=== PATIENT | female | born 1980 | race Caucasian/White ===

== ENCOUNTER 2019-10-26 15:30 | Outpatient (RCR) | payer SELFPAY | END 2019-10-26 23:59 | disposition home or self-care (01) | LOC: NS 15:30 | PROVIDERS: Visit Provider Specialist | DX: Z71.3 Dietary counseling and surveillance (principal); E66.8 Other obesity; Z68.43 Body mass index [BMI] 50.0-59.9, adult | CPT/HCPCS: 97803; 99201; G0463 ==

== ENCOUNTER 2022-03-26 09:08 | Emergency (ER) | payer BC, SELFPAY ==
[2022-03-26 09:08] VITALS: BP 120/76; PULSE 101; RESP 34; TEMP 35.6; O2SAT 99; BMI 57.8
--- NOTE | 2022-03-26 09:12 | NURSING ---
NO OLD EKGS
--- NOTE | 2022-03-26 09:14 | RAD_ITS ---
STUDY: X-RAY CHEST REASON FOR EXAM: Female, 41 years old. Sudden onset of chest pain with shortness of breath. TECHNIQUE: Single AP portable view of the chest. COMPARISON: None. FINDINGS: EKG electrodes are seen. Elevation of the right hemidiaphragm. The lungs are clear. There is no demonstrated pleural abnormality. Normal size heart. Normal mediastinum and ilene. Normal visualized pulmonary arteries. Normal visualized aortic arch and descending thoracic aorta. Normal visualized thoracic spine. Normal visualized ribs, clavicles, and shoulders. There is no demonstrated abnormality of the visualized soft tissue structures of the upper abdomen. RAD/Chest 1 View (Portable) IMPRESSION: No acute abnormality is seen. Electronically Signed: Dimitris Fleming MD at 10:14 EDT ,
--- NOTE | 2022-03-26 09:14 | EKG12_ITS ---
Test Reason : CP Blood Pressure : / mmHG Vent. Rate : 093 BPM Atrial Rate : 093 BPM P-R Int : 132 ms QRS Dur : 090 ms QT Int : 364 ms P-R-T Axes : 031 036 013 degrees QTc Int : 452 ms Normal sinus rhythm Low voltage QRS Borderline ECG Confirmed by JESSIE FRAIRE, ANASTACIA ([id number]), business editor JOCELINE HURT ([id number]) on 03/29/2022 7:56:39 AM Referred By: Alfonso Confirmed By:ANASTACIA ROMAN MD
--- NOTE | 2022-03-26 09:15 | ED.VIS.CHEST ---
HPI History of Present Illness Chief Complaint: Chest Pain Detail of Chief Complaint: Difficulty breathing and shortness of breath Informant: patient Onset/Context/Timing Onset: Hours (0400) Activity at onset: sleep Timing: Continuous Location: - (Patient denies chest discomfort. She states difficulty breathing and back pain) Current Severity: Mild Maximum Severity: Moderate Worsened By: Nothing Relieved By: Nothing Associated Symptoms: Positive for Dyspnea and - (There is no history of hiatal hernia or peptic ulcer disease); Negative for Nausea, Vomiting, Diaphoresis, Cough, Fever, Lightheadedness, Acid Reflux or Palpitations Narrative Narrative: Patient is a 41-year-old woman with history of hypertension, hypercholesterolemia, obstructive sleep apnea who is compliant with her BiPAP machine and prediabetes. She states she was awakened from sleep at 0400 with shortness of breath. She denies diaphoresis. She denies chest discomfort. She states she had upper back pain. She denies jaw pain, neck pain or upper extremity pain. She denied nausea, vomiting. She denies prior symptoms. Patient denies history of hiatal hernia, reflux or peptic ulcer disease. Patient denies black or maroon-colored stool. Patient still is experiencing the shortness of breath. She denies history of VTE and has no risk factors. Prior Similar Symptoms: No CVD Risk Factors: Positive for Hypertension, Hypercholesterolemia and - (Father had heart disease but does not know age); Negative for Smoking PE Risk Factors: Negative for Recent Travel/Surgery, Recent Immobilization, Prior DVT or PE, Cancer or OCP + Smoking + >/=35 TAD Risk Factors: Positive for Hypertension; Negative for Marfan's Syndrome or Family History PFSH PFSH Medical History no medical history Allergy/AdvReac Type Severity Reaction Status Date / Time watermelon Allergy Swelling Verified 03/26/22 09:11 Family History no significant family his Surgical History no surgical history Social History (Updated 03/26/22 @ 09:[address] Curry Hamilton MD) household members: spouse Smoking Status: Never smoker substance use type: does not use ROS ROS ED Constitutional Constitutional ED: Denies chills, fever(s), subjective, sweats or weight loss Eyes Eyes: Reports none ENT ENT ED: Denies ear pain, rhinorrhea or sore throat Cardiovascular Cardiovascular: Reports as per HPI; Denies orthopnea or paroxysmal nocturnal dyspnea Respiratory/Chest Respiratory/Chest: Reports dyspnea; Denies cough, dyspnea on exertion, orthopnea or paroxysmal nocturnal dyspnea Gastrointestinal Gastrointestinal: Denies abdominal pain, diarrhea, melena, nausea or vomiting Genitourinary Genitourinary ED: Denies dysuria or hematuria Musculoskeletal Musculoskeletal: Reports back pain; Denies arthralgias, myalgias or neck pain Neurologic Neurologic: Denies headache(s), paresthesias or weakness Psychiatric Psychiatric: Denies anxiety or depression Endocrine Endocrinology: Denies cold intolerance or heat intolerance Hematologic/Lymphatic Hematologic/Lymphatic: Denies easy bruising EXAM Physical Exam Const Vital Signs: 03/26/22 09:08 03/26/22 09:14 03/26/22 11:06 Temperature 96.1 F L Temperature Source Temporal Pulse Rate 101 H 96 Respiratory Rate 34 H 20 H Blood Pressure 120/76 120/83 H Blood Pressure Mean 90 95 Pulse Ox 99 96 Oxygen Delivery Method Room Air Room Air Room Air 03/26/22 12:16 Temperature Temperature Source Pulse Rate 90 Respiratory Rate 26 H Blood Pressure 131/89 H Blood Pressure Mean 103 Pulse Ox 95 Oxygen Delivery Method Room Air Positive well nourished, well developed and obese; Negative for cachectic, contractures or unkempt General Appearance ED: well developed and NAD; Negative for unkempt, cachectic, contractures or pallor Nutritional Appearance: obese; Negative for cachectic HEENT Reports moist mucous membranes HEENT Narrative: Ears normal. Nares patent. Mucosa moist. normocephalic and atraumatic Eyes PERRL and EOMs intact bilaterally General Eye ED: Negative for pale conjunctiva or scleral icterus Neck no lymphadenopathy, supple and no JVD Chest Wall palpation of chest normal Resp normal respiratory effort and clear to auscultation bilaterally Effort and Inspection: Negative for pain with movement Cardio regular rate, regular rhythm, S1 normal heart sound and S2 normal heart sound Peripheral Pulses: pulses 2+ throughout GI normal to inspection, nondistended, normoactive bowel sounds, soft to palpation, non-tender and non-distended Back/Spine no CVA tenderness Extremity Negative for normal to inspection Extremity Narrative: Venous stasis dermatitis General Extremety ED: Yes edema and pulses abnormal; Negative for tenderness General Extremity: edema and pulses abnormal Neuro oriented x3, CN's II-XII intact bilaterally and no sensory deficits noted Sensorium / Orientation: awake and alert Motor Exam: strength 5/5 throughout Psych mental status grossly normal Appearance: Negative for unkempt Skin no rashes or lesions noted and no wounds General Skin Exam: Negative for jaundice or pallor Heart Score History: Slightly/Non-Suspicious Age: </= 45 years Risk Factors: >/= 3 Risk Factors or History of CAD Score: 2 MDM MDM MDM Narrative Medical decision making narrative: Patient presents with PND. She also had upper back pain. Differential is PE, cardiac ischemia doubt pneumonia or pneumothorax. Patient did receive aspirin by EMS prior to arrival. EKG was obtained to evaluate for acute cardiac ischemia. CBC to evaluate for anemia. Basic metabolic panel to assess renal function if imaging is required with contrast. Troponin with 2-hour troponin Lab Data Attestation: I reviewed the patient's lab results. Lab results narrative: First troponin is 4. Second was 6. Delta is 2. Per high-sensitivity algorithm she since both troponins were less than 8 and the delta was less than 7 the negative predictive value for rule out is 100%. Sensitivity is 100%. Therefore will discharge patient to home Labs: Laboratory Results - last 24 hr 03/26/22 03/26/22 03/26/22 09:48 09:48 11:45 WBC 8.4 RBC 4.31 Hgb 13.0 Hct 38.4 MCV 89.1 MCH 30.2 MCHC 33.9 RDW Std Deviation 42.4 RDW Coeff of Baljit 12.9 Plt Count 196 MPV 10.3 Immature Gran % (Auto) 0.200 Neut % (Auto) 60.3 Lymph % (Auto) 21.5 Howard % (Auto) 5.6 Eos % (Auto) 11.7 H Baso % (Auto) 0.7 Absolute Neuts (auto) 5.0 Absolute Lymphs (auto) 1.80 Nucleated RBC % 0 Sodium 138 Potassium 3.8 Chloride 105 Carbon Dioxide 28.0 Anion Gap 5 BUN 17 Creatinine 0.81 Estim Creat Clear Calc 74.08 Est GFR (MDRD) Af Amer 99 Est GFR (MDRD) Non-Af 82 BUN/Creatinine Ratio 21.0 H Glucose 93 Calcium 9.8 Troponin I High Sens 4 6 Radiography Diagnostic Testing: Clinical Impression(s) from Imaging Studies Chest X-Ray 03/26/22 09:14 IMPRESSION: No acute abnormality is seen. Electronically Signed: Dimitris Fleming MD at 10:14 EDT , EKG Initial EKG: Attestation: I personally reviewed and interpreted this EKG as follows: Interpretation: Sinus Rhythm (Normal sinus rhythm with a ventricular rate of 93. MN intervals 132 ms. QS duration 90 ms. QT duration 364 ms. [place] is normal. There is evidence of low voltage which may be due to body habitus, BMI 57.8.) Discharge Plan Triage Chief Complaint: Chest Pain ED Provider: Curry Hamilton Dx/Rx/DC Orders Clinical Impression: Paroxysmal nocturnal dyspnea, History of obstructive sleep apnea, History of chronic hypertension, History of hypercholesterolemia Instructions: ED Dyspnea Primary Care Provider: Estefani Bateman NP Referrals: Estefani Bateman NP, INDUSTRI[employer] TECHNICIAN-[facility] [Primary Care Provider] - 5-7 Days Disposition Disposition: Home, Self Care
[2022-03-26 09:57] LABS: Basophil# 0.06 X10^3/uL; Basophil% 0.7 % (0-1); Eosinophil# 0.98 X10^3/uL; Eosinophils% 11.7 % (0-5); Hematocrit 38.4 % (37-47); Lymphocyte % 21.5 % (19-41); Mean Corp Hgb Conc 33.9 g/dL (32-36); Mean Corpuscular Hgb 30.2 pg (27.0-32.0); Mean Corpuscular Volume 89.1 fL (81-99); Mean Platelet Vol. 10.3 fl (6.2-12.0); Monocyte# 0.47 X10^3/uL; Monocyte% 5.6 % (0-10); NRBC Flagged by Analyzer 0 % (0-5); Neutrophil # 5.04 X10^3/uL (2.7-7.7); Neutrophil % 60.3 % (47-70); Platelet Count 196 K/mm3 (150-450); RBC Distribution Width CV 12.9 % (11.6-14.6); RBC Distribution Width SD 42.4 fl (35.1-43.9); Red Blood Count 4.31 M/mm3 (4.2-5.4); White Blood Count 8.4 K/mm3 (4.4-11.0)
[2022-03-26 10:11] LABS: Anion Gap 5 (5-15); BUN 17 mg/dL (7-18); Calcium,Total 9.8 mg/dL (8.5-10.1); Chloride 105 mmol/L (98-107); Creatinine, Serum 0.81 mg/dL (0.55-1.02); EST Glomerular Filtration Rate 82 mL/min (>60); Est Glom Filt Rate - Afr Amer 99 mL/min (>60); Estimated Creatinine Clearance 74.08 ml/min; Glucose 93 mg/dL (74-106); Potassium 3.8 mmol/L (3.5-5.1); Sodium Level 138 mmol/L (136-145); Troponin-I HS (w/2H Reflex) 4 pg/mL (3.0-54.0)
[2022-03-26 11:06] VITALS: BP 120/83; PULSE 96; RESP 20; O2SAT 96
[2022-03-26 11:52] LABS: Reflex Troponin-HS? (from REC) Y
[2022-03-26 12:13] LABS: Troponin-I HS (w/2H Reflex) 6 pg/mL (3.0-54.0)
[2022-03-26 12:16] VITALS: BP 131/89; PULSE 90; RESP 26; O2SAT 95
[2022-03-26 12:58] VITALS: BP 123/92; PULSE 99; RESP 18; O2SAT 94
[2022-03-26 13:48] LABS: Reflex Troponin-HS? (from REC) Y
== END 2022-03-26 12:58 | disposition home or self-care (01) ==
PROVIDERS: Emergency Provider Emergency Medicine; PCP Nurse Practitioner Family; Visit Provider Emergency Medicine
DX: R06.00 Dyspnea, unspecified (principal); Z68.43 Body mass index [BMI] 50.0-59.9, adult; G47.33 Obstructive sleep apnea (adult) (pediatric); I10 Essential (primary) hypertension; E78.00 Pure hypercholesterolemia, unspecified; R73.03 Prediabetes; E66.9 Obesity, unspecified
CPT/HCPCS: 71045; 80048; 84484; 85025; 93005; 99285

== ENCOUNTER → 2022-10-29 | Outpatient (CLI) | payer BC, SELFPAY ==
--- NOTE | 2022-10-29 09:55 | RAD_ITS ---
EXAM: XR PELVIS, 1 OR 2 VIEWS CLINICAL INDICATION: PAIN TECHNIQUE: Frontal view of the pelvis. This report was created using [email or web address] report generation technology. COMPARISON: None. FINDINGS: BONES/JOINTS: Unremarkable. No displaced fracture. No destructive or sclerotic lesions. Note that overlapping bowel shadows may however obscure fine detail. Sacroiliac joints are unremarkable. No widening of the pubic symphysis. The articular structures are unremarkable. SOFT TISSUES: Unremarkable. No soft tissue swelling or gas. RAD/Pelvis 1 or 2 Views IMPRESSION: No evidence of displaced pelvic fracture. Electronically Signed: Arnold Carpio MD at 2:21 EST ,
--- NOTE | 2022-10-29 09:55 | RAD_ITS ---
STUDY: X-RAY CHEST REASON FOR EXAM: Female, 42 years old. Pain. TECHNIQUE: PA and lateral views of the chest. COMPARISON: March 26, 2022. FINDINGS: Continued slight elevation right hemidiaphragm. The lungs are clear. There is no demonstrated pleural abnormality. Normal size heart. Normal mediastinum and ilene. Normal visualized pulmonary arteries. Normal visualized aortic arch and descending thoracic aorta. There are diffuse degenerative changes of the visualized thoracic spine. Normal visualized ribs, clavicles, and shoulders. There is no demonstrated abnormality of the visualized soft tissue structures of the upper abdomen. RAD/Chest PA and Lateral IMPRESSION: Degenerative changes, as described above. No demonstrated acute cardiopulmonary process. No major interval change. Electronically Signed: Francisco Javier Espana DO at 18:01 EST ,
[2022-10-29 12:29] LABS: Erythrocyte Sedimentation Rate 30 mm/hr (0-30)
[2022-10-29 12:48] LABS: Absolute Lymphocyte Count 2.04 X10^3/uL (0.83-4.51); Absolute Neutrophil Count 5.1 X10^3/uL (2.0-7.7); Basophil# 0.07 X10^3/uL; Basophil% 0.8 % (0-1); Eosinophil# 0.97 X10^3/uL; Eosinophils% 11.1 % (0-5); Hematocrit 41.3 % (37-47); Hemoglobin 13.7 g/dL (12.0-15.0); Lymphocyte # 2.04 X10^3/ul (0.83-4.51); Lymphocyte % 23.4 % (19-41); Mean Corp Hgb Conc 33.2 g/dL (32-36); Mean Corpuscular Hgb 30.1 pg (27.0-32.0); Mean Corpuscular Volume 90.8 fL (81-99); Monocyte# 0.48 X10^3/uL; Monocyte% 5.5 % (0-10); NRBC Flagged by Analyzer 0 % (0-5); Neutrophil # 5.12 X10^3/uL (2.7-7.7); Neutrophil % 58.6 % (47-70); Platelet Count 241 K/mm3 (150-450); RBC Distribution Width CV 13.1 % (11.6-14.6); RBC Distribution Width SD 42.9 fl (35.1-43.9); Red Blood Count 4.55 M/mm3 (4.2-5.4); White Blood Count 8.7 K/mm3 (4.4-11.0)
[2022-10-29 13:21] LABS: Hepatitis B Surface Antibody Non-Reactive; Hepatitis B Surface Antigen Non-Reactive (Nonreactive); Hepatitis C Antibody Non-Reactive (Nonreactive)
[2022-10-29 13:27] LABS: BUN 14 mg/dL (7-18); Creatinine, Serum 0.98 mg/dL (0.55-1.02); EST Glomerular Filtration Rate 65 mL/min (>60); Glucose 109 mg/dL (74-106)
[2022-10-29 13:28] LABS: AST(SGOT) 38 U/L (15-37); Alanine Aminotransfer ALT/SGPT 60 U/L (13-56); Albumin, Serum 3.6 g/dL (3.2-5.0); Alkaline Phosphatase 74 U/L (45-117); Anion Gap 9 (5-15); BUN/Creat Ratio 14.2 RATIO (10-20); Calcium,Total 9.4 mg/dL (8.5-10.1); Chloride 106 mmol/L (98-107); Est Glom Filt Rate - Afr Amer 79 mL/min (>60); Globulin 3.7 g/dL (2.2-4.2); Potassium 3.5 mmol/L (3.5-5.1); Protein, Total 7.3 g/dL (6.4-8.2); Sodium Level 139 mmol/L (136-145)
[2022-11-13 00:06] LABS: QNTFERON TB Mitogen Value > 10.00 IU/mL (.); QNTFERON TB Nil Value 0.06 IU/mL (.); QNTFERON TB1+ Ag Value 0.05 IU/mL (.); QNTFERON TB2+ Ag Value 0.05 IU/mL (.)
[2022-11-13 14:54] LABS: CCP IgG Antibodies 4 units (0-19); HLA B27 Negative (.); QNTIFERON TB Positive Criteria Negative (Negative)
== END | disposition home or self-care (01) ==
PROVIDERS: PCP Nurse Practitioner Family; Referring Provider Internal Medicine Rheumatology; Visit Provider Internal Medicine Rheumatology
DX: M06.4 Inflammatory polyarthropathy (principal); M79.7 Fibromyalgia; M17.0 Bilateral primary osteoarthritis of knee
CPT/HCPCS: 36415; 71046; 72170; 80053; 81374; 85025; 85652; 86140; 86200; 86431; 86480; 86706; 86803; 87340